=== PATIENT | male | born 1960 | race Caucasian/White ===

== ENCOUNTER 2016-10-10 22:02 | Emergency (ER) | payer SELFPAY ==
[~2016-10-10 22:02] MED LIST: Dextrose 5 %-0.45 % NaCl 1000 ml Bag ONE
[2016-10-10] MEDS ORDERED: Multivit, Adult Inj 10 ML VIAL ONE (22:25)
[2016-10-10] MEDS ORDERED: Thiamine HCl 200 MG/2 ML VIAL ONE (22:25)
[2016-10-10] MEDS ORDERED: Ondansetron HCl/PF 4 MG/2 ML Vial ONE (22:25)
[2016-10-10] MEDS ORDERED: Ketorolac Tromethamine 30 MG/ML VIAL ONE (22:25)
[2016-10-10 22:52] LABS: INR-International Normal Ratio 1.3; PTT 38.1 SEC (22.9-36.1); Prothrombin Time 16.1 SEC (12.0-14.7)
[2016-10-10 23:03] LABS: Bilirubin Negative (Negative); Blood, Urine Negative (Negative); Clarity Clear (Clear); Glucose, Urine (Dipstick) Negative (Negative); Leukocyte Negative (Negative); Nitrite Negative (Negative); Urobilinogen 0.2 mg/dL (0.2-1.0); pH, Urine 5.5 (5.0-9.0)
[2016-10-10 23:04] LABS: #Basophils 0.1 thou/uL (0.0-0.2); #Eosinphils 0.2 thou/uL (0.0-0.7); #Lymphocytes 3.6 thou/uL (1.20-3.40); #Monocytes 0.8 thou/uL (0.11-0.59); #Neutrophils 6.5 thou/uL (1.40-6.50); %Basophils 0.8 % (0.0-1.0); %Eosinophils 1.7 % (0.0-10.0); %Monocytes 7.4 % (0.0-10.0); %Neutrophils 58.1 % (42.0-75.0); Hemoglobin 10.3 g/dL (14.0-18.0); Mean Corpuscular Volume 74.9 fl (80.0-94.0); Platelet Count 303 thou/uL (130-400); RBC Distribution Width 16.2 % (11.5-14.5); White Blood Cell (WBC) Count 11.2 thou/uL (4.8-10.8)
[2016-10-10 23:05] LABS: Anisocytosis MARKED = >30 cells (100X) (0-5/hpf); Microcytosis MARKED = >30 cells (100X) (0-5/hpf)
[2016-10-10 23:06] LABS: Amphetamine Not Detected (NotDetected); Barbiturates Screen Not Detected (NotDetected); Benzodiazepine Screen Not Detected (NotDetected); Cocaine Metabolite Screen Not Detected (NotDetected); Medtox Control Line Valid? VALID (VALID); Methadone Not Detected (NotDetected); Methamphetamine Not Detected (NotDetected); Opiate Screen Not Detected (NotDetected); Oxycodone Screen Not Detected (NotDetected); Phencyclidine (PCP) Not Detected (NotDetected); Protein, Urine (Dipstick) Trace mg/dL (Neg-Trace); Specific Gravity, Urine 1.005 (1.002-1.036); THC/Cannabinoid Screen Not Detected (NotDetected); Tricyclic Screen Not Detected (NotDetected)
[2016-10-10 23:06] LABS: Acetaminophen Less than 3.0 mcg/mL (10.0-30.0); Alcohol 271 mg/dL (Less than 10); Salicylate Less than 5.0 mg/dL (15.0-30.0)
[2016-10-10 23:07] LABS: Bacteria/HPF None Seen HPF (None Seen); RBC/HPF None Seen HPF (0-3); Squamous Epithelial 0-3 HPF (0-3); WBC/HPF None Seen HPF (0-3)
[2016-10-10 23:08] LABS: ALT (SGPT) 26 U/L (0-55); AST (SGOT) 38 U/L (5-34); Albumin 4.3 g/dL (3.5-5.0); Alkaline Phosphatase 93 U/L (40-150); Anion Gap 18 mmol/L (10-20); BUN (Urea Nitrogen) 4 mg/dL (8.4-25.7); Bilirubin, Total 0.7 mg/dL (0.2-1.2); CK (CPK) 273 U/L (30-200); Calc. Creatinine Clearance 0 mL/min (70-130); Carbon Dioxide 17 mmol/L (22-29); Chloride 92 mmol/L (98-107); Estimated GFR-MDRD Greater than 90; Globulin 3.4 g/dL (2.4-3.5); Glucose 91 mg/dL (70-105); Magnesium 2.1 mg/dL (1.6-2.6); Protein, Total 7.7 g/dL (6.0-8.3); Sodium 123 mmol/L (136-145)
[2016-10-10 23:37] LABS: CKMB 4.2 ng/mL (0-6.6); Troponin I Less than 0.010 ng/mL (< 0.028)
--- NOTE | 2016-10-10 23:43 | RAD ---
LEFT RIB FOUR VIEWS CHEST ONE VIEW: History: Fall, left chest injury. FINDINGS: No displaced rib fracture or pneumothorax are apparent. The cardiac silhouette and pulmonary vascula ture are unremarkable. Mediastinum is midline. No confluent airspace consolidation is visible. IMPRESSION: No significant abnormalities are demonstrated. POS: [facility]
== END 2016-10-10 23:58 | disposition home or self-care (01) ==
LOC: MADERS 22:02
DX: R07.89 Other chest pain (principal); E87.1 Hypo-osmolality and hyponatremia; D64.9 Anemia, unspecified; F10.129 Alcohol abuse with intoxication, unspecified; Y90.8 Blood alcohol level of 240 mg/100 ml or more
CPT/HCPCS: 36415; 80053; 80306; 80307; 81003; 81015; 82550; 82553; 83735; 83880; 84484; 85025; 85610; 85730; 87086; 93005; 94760; 96365; 96375; J1885; J2405; J3411; J7042